=== PATIENT | female | born 1985 | race Caucasian/White ===

== ENCOUNTER → 2018-08-07 | Outpatient (CLI) | payer SELFPAY ==
--- NOTE | 2018-08-07 09:21 | MR ---
EXAMINATION TYPE: MR thoracic spine wo con DATE OF EXAM: 08/07/2018 COMPARISON: X-ray dated 08/01/2018 HISTORY: Pain in thoracic spine /Scoliosis Standard multiplanar, multisequence MRI departmental protocol Multiplanar, multisequence images of the thoracic spine were acquired. FINDINGS: There is a subtle curvature of the vertebral column. Vertebral body height and disc interspace mainta ined at all levels. There are numerous cysts within the kidneys with cortical loss on the right. There is a larger couple renal lesions which do not meet the criteria of a simple cyst largest measuring 3 cm for which ultra sound is recommended. There is minimal central disc bulging T3-T4 but no evidence of disc herniation, disc herniation, casimiro l stenosis, or foraminal encroachment at any of the visualized levels. No abnormal signal the visualized spinal cord. IMPRESSION: There is a subtle curvature of the vertebral column with no evidence of degenerative disc disease, di sc herniation or foraminal encroachment. Minimal central disc bulging T3-T4. Bilateral renal lesions some of which do not meet the criteria of simple cyst recommend follow-up ult rasound. There is also suggestion on axial image 6 of a right sided pulmonary nodule measuring [address] chest recommended.
== END ==
LOC: RADMRIMAIN 08:25
PROVIDERS: ATTEND Family Medicine
DX: M54.6 Pain in thoracic spine (principal); M41.9 Scoliosis, unspecified
CPT/HCPCS: 72146

== ENCOUNTER → 2018-08-21 | Outpatient (CLI) | payer OTHER ==
--- NOTE | 2018-08-21 08:45 | CT ---
EXAMINATION TYPE: CT chest wo con DATE OF EXAM: 08/21/2018 COMPARISON: MR thoracic spine dated 08/07/2018 HISTORY: Pulmonary nodule; Polycystic kidney disease. Possible pulmonary nodule seen on MRI of the th oracic spine dated 08/07/2018. CT DLP: 151 mGycm. Automated Exposure Control for Dose Reduction was Utilized. TECHNIQUE: CT scan of the thorax is performed without IV contrast. High-resolution CT chest protocol limits evaluation for pulmonary nodules as there are noncontiguous slices performed. FINDINGS: LUNGS: There is an approximately 5 mm pulmonary nodule within the superior segment of the right lower lobe abutting the interlobar fissure on series 4 image 23 and 24 and series 8 image 22. This appears solid on soft tissue algorithms series 7 image 22. Although there is limitation in evaluation for pu lmonary nodules given the high-resolution chest CT protocol a second 3 mm subpleural right upper lobe pulmonary nodule seen laterally on series 4 image 30. There is mild centrilobular emphysema seen within the upper lungs and some dependent apical minimal a telectasis. MEDIASTINUM: Lack of IV contrast is noted to limit evaluation for mediastinal and especially hilar ad enopathy. There are no definitive greater than 1 cm hilar or mediastinal lymph nodes. No cardiomega ly or pericardial effusion is seen. OTHER: The kidneys are suboptimally evaluated without contrast in this patient with known polycystic kidney disease. A solid 2.2 cm lateral left midpole renal lesion should be further characterized with contrast or ultrasound as well as a solid right upper pole 1.7 cm lesion. Bilateral nonobstructing r enal calculi are present measuring 5 mm and 4 mm on the left and up to 4 mm on the right (4 number). IMPRESSION: 1. Right-sided pulmonary nodules (2 in number) measuring up to 5 mm. For a pulmonary nodule less than 6 mm consensus criteria recommends follow-up in [address] thorax to assess for interval grow th. 2. Mild centrilobular emphysema. 3. Suboptimal evaluation of the kidneys without intravenous contrast. There are solid bilateral renal masses for which further characterization is recommended with CT abdomen with contrast. If the patie nt cannot receive contrast due to abnormal laboratory values ultrasound could further assess these fi ndings.
--- NOTE | 2018-08-21 13:30 | US ---
EXAMINATION TYPE: US kidneys/renal and bladder DATE OF EXAM: 08/21/2018 COMPARISON: Correlation CT chest same day CLINICAL HISTORY: 33-year-old female Q61.3 Polycystic kidney, unspecified.... Polycystic Kidney Disea se. Hx kidney stones, renal stents, and nephrostomies. TECHNIQUE: Multiple sonographic images of the kidneys and bladder are obtained. FINDINGS: EXAM MEASUREMENTS: Right Kidney: 12.3 x 6.8 x 6.2 cm Left Kidney: 10.3x 5.4 x 5.6 cm Post Void Residual Volume: Not performed. Right Kidney: Multiple cysts are seen. Largest is present superiorly: 2.3 x 2.5 x 2.8 cm. Echogenic focus with shadowing seen laterally: 2.5 x 2.2 x 2.2 cm. Mild right-sided pelvicaliectasis Left Kidney: Multiple cysts are present. Hypoechoic area seen mid pole: 3.7 x 2.7 x 2.7 cm. Bladder: wnl Bilateral Jets seen: Yes IMPRESSION: 1. Multiple bilateral renal cysts. 2. Possible 2.5 cm partially calcified lesion laterally in the right kidney. Contrast-enhanced kidney CT or MRI is recommended to further evaluate. If IV contrast cannot be administered due to the degre e of chronic kidney disease, consider noncontrast MRI supplemented with diffusion weighted images. 3. Possible solid 3.7 cm lesion versus complicated cyst in the left kidney should also be evaluated o n the patient's follow-up study. 4. Mild right-sided pelvicaliectasis which may be transient. The right ureteral jet is visualized whi ch argues against ureteric obstruction. Short interval follow-up to reassess.
== END | disposition home or self-care (01) ==
LOC: RADCTMAIN 08-14 07:39
PROVIDERS: ATTEND Family Medicine
DX: J43.2 Centrilobular emphysema (principal); R91.8 Other nonspecific abnormal finding of lung field; N28.1 Cyst of kidney, acquired
CPT/HCPCS: 71250; 76770

== ENCOUNTER → 2018-09-10 | Outpatient (CLI) | payer OTHER ==
[2018-09-10 09:29] LABS: Blood Urea Nitrogen 11 mg/dL (7-17)
--- NOTE | 2018-09-10 10:48 | CT ---
EXAMINATION TYPE: CT abdomen wo/w con DATE OF EXAM: 09/10/2018 HISTORY: Neoplasm of uncertain behavior of right kidney CT DLP: 526.80mGycm Automated Exposure Control for Dose Reduction was Utilized. CONTRAST: CT scan of the abdomen is performed without and with IV Contrast, patient injected with 526.80 mL of Isovue 300. COMPARISON: None. FINDINGS: LUNG BASES: Minimal bibasilar subsegmental dependent atelectasis is seen. LIVER/GB: There is a subtle solitary 3 mm too small to accurately characterize hepatic lesion within segment 6 on series 7 image 37. No other focal hepatic lesions or intrahepatic biliary ductal dilatat ion. No hepatic steatosis. No cholelithiasis is radiopaque. PANCREAS: No significant abnormality is seen. SPLEEN: No significant abnormality is seen. ADRENALS: No significant abnormality is seen. KIDNEYS: There is polycystic kidney disease. There is a right upper pole hyperdense renal lesion without enhan cement measuring 2.1 cm. A second ill-defined hyperdense renal lesion in the right upper pole also de monstrates no enhancement measuring 2.4 cm. No other hyperdense renal lesions are seen on the noncont rast portion of examination. On the enhanced portion there are numerous bilateral renal cysts, some o f which are subcentimeter and too small to accurately characterize. No thickened septa or mural nodul es are seen. The left renal lesion in the midpole seen on the prior ultrasound of 08/21/2018 measures approximately 3.8 cm. Although this is slightly hyperdense on the precontrast portion of the exam and appears solid this demonstrates only 4 Hounsfield unit difference in postcontrast therefore no signi ficant enhancement is seen. Continued follow-up is recommended for this mass. No significant enhancement is seen within the larger lesions. The kidneys excrete symmetrically witho ut hydronephrosis. Within the kidneys there are bilateral nonobstructing renal calculi (approximately 9 on the right and approximately 6 on the left) measuring up to 5 mm. There is also a dystrophic braxton cification measuring 2 cm within the right lower pole laterally. BOWEL: No dilated large or small bowel. LYMPH NODES: No greater than 1cm abdominal or pelvic lymph nodes are appreciated. OSSEOUS STRUCTURES: No significant abnormality is seen. IMPRESSION: 1. Polycystic kidney disease. 3.8 cm left renal midpole mass corresponding to a Bosniak 2F lesion as this is hyperdense, and greater than 3 cm with no abnormal enhancement by definition. Short-term foll ow-up is recommended for these lesions, most commonly at 6 months. 2. Solitary too small to accurately characterize 3 mm hepatic lesion. Stability can also be assessed on the follow-up exam.
== END | disposition home or self-care (01) ==
LOC: RADCTMAIN 08:35
PROVIDERS: ATTEND Urology
DX: N28.1 Cyst of kidney, acquired (principal); K76.89 Other specified diseases of liver; D41.01 Neoplasm of uncertain behavior of right kidney; D41.02 Neoplasm of uncertain behavior of left kidney
CPT/HCPCS: 82565; 84520; 74170; 36415; Q9967

== ENCOUNTER → 2018-10-08 | Outpatient (CLI) | payer OTHER ==
--- NOTE | 2018-10-08 13:08 | XR ---
EXAMINATION TYPE: XR KUB DATE OF EXAM: 10/08/2018 CLINICAL DATA: 33-year-old female right-sided kidney stones, N20.0, [facility] COMPARISON: 07/15/2011 FINDINGS: Nonobstructive bowel gas pattern. Mild scattered stool. Right-sided ureteral stent is present. Large irregular calcification right kidney measures 10.0 x 1.6 cm. 2 calculi projecting at the upper pole of the left kidney measure 7 and 5 mm. IMPRESSION: Right-sided ureteral stent. Large irregular 2.0 x 1.6 cm right renal calculus and a couple smaller 7 and 5 mm left renal calculi.
== END | disposition home or self-care (01) ==
LOC: RADXRMAIN 12:44
PROVIDERS: ATTEND Urology
DX: N20.0 Calculus of kidney (principal); Z96.0 Presence of urogenital implants
CPT/HCPCS: 74018